=== PATIENT | male | born 1995 | race Caucasian/White ===

== ENCOUNTER 2016-11-08 01:44 | Inpatient (IN) | payer OTHER ==
[~2016-11-08] VITALS: Ht 175.3 cm; Wt 74.8 kg
[2016-11-08] VITALS (15 sets, daily range): BP systolic 103–158; BP diastolic 52–90
[2016-11-08 02:16] LABS: BASOPHILS % (AUTO) 0.6 % (0.0-2.0); EOSINOPHILS % (AUTO) 2.7 % (0.0-3.0); LYMPHOCYTES % (AUTO) 32.6 % (20.0-45.0); MEAN CORPUSCULAR HEMOGLOBIN 30.7 PG (27.0-31.0); MEAN CORPUSCULAR HGB CONC 33.3 G/DL (32.0-36.0); MEAN CORPUSCULAR VOLUME 92 FL (80-99); MEAN PLATELET VOLUME 7.2 FL (6.5-10.1); NEUTROPHILS % (AUTO) 55.1 % (45.0-75.0); PLATELET COUNT 260 K/UL (150-450); RED BLOOD COUNT 4.94 M/UL (4.70-6.10); RED CELL DISTRIBUTION WIDTH 10.9 % (11.6-14.8); WHITE BLOOD COUNT 9.2 K/UL (4.8-10.8)
[2016-11-08 02:19] LABS: APPEARANCE,URINE CLEAR; KETONES,URINE 1+ (NEGATIVE); LEUKOCYTE ESTERASE ,URINE NEGATIVE (NEGATIVE); NITRITE,URINE NEGATIVE (NEGATIVE); PH,URINE 5 (4.5-8.0); PROTEIN,URINE NEGATIVE (NEGATIVE); UROBILINOGEN,URINE NORMAL MG/DL (0.0-1.0)
[2016-11-08 02:31] LABS: ACETAMINOPHEN < 10 ug/mL (10-30); ALANINE AMINOTRANSFERASE 13 U/L (3-41); ALBUMIN/GLOBULIN RATIO 1.6 (1.0-2.7); ALCOHOL < 10 mg/dL; ANION GAP 14 (5-15); ASPARTATE AMINO TRANSFERASE 19 U/L (5-40); CALCIUM 9.8 mg/dL (8.6-10.2); CARBON DIOXIDE 24 mEQ/L (20-30); CHLORIDE 103 mEQ/L (98-107); CREATININE 0.8 mg/dL (0.7-1.2); GLOMERULAR FILTRATION RATE > 60 mL/min (>60); HEMOLYSIS 5; SODIUM 141 mEQ/L (135-145); TOTAL PROTEIN 7.6 g/dL (6.6-8.7)
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
[2016-11-08] MEDS ORDERED: DuoNeb 0.5-3(2.5)mg/3ml neb HHN SCH (03:15)
[2016-11-08] MEDS ORDERED: Zemuron 50mg/5ml Inj IV ONE ×3 (03:45→14:59)
[2016-11-08] MEDS ORDERED: Etomidate 40mg/20ml Inj IV ONE ×3 (03:45→14:59)
[2016-11-08] MEDS ORDERED: UNOBMED (04:58)
[2016-11-08] MEDS ORDERED: cefTRIAXone 1gm/D5W 55ml IVPB SCH ×4 (06:00→09:00)
[2016-11-08] MEDS ORDERED: LORazepam Inj 2mg/ml 1ml ONE (06:37)
[2016-11-08] MEDS ORDERED: LORazepam Inj 2mg/ml 1ml IV PRN (07:00)
[2016-11-08 07:17] LABS: ABG PCO2 34.7 mmHg (35.0-45.0)
[2016-11-08 07:18] LABS: ABG BASE EXCESS -2.6
--- NOTE | 2016-11-08 09:09 | Critical Care Progress Note ---
Assessment/Plan Assessment/Plan respiratory failure PLAN extubate taper oxygen defer primary care to Dr. Patel Critical Care - Subjective Interval Events: care noted and reviewed awake d/w nursing I&O: Intake and Output 11/08/16 11/09/16 19:00 07:00 Output Total 30 ml Balance -30 ml Output Urine Total 30 ml Critical Care - Objective ET-Tube: 7.5 ET Position: 27 Last 24 Hour Vital Signs Date Time Temp Pulse Resp B/P (MAP) Pulse Ox O2 Delivery O2 Flow Rate FiO2 11/08/16 08:58 Room Air 11/08/16 08:14 30 11/08/16 08:06 100 11/08/16 08:00 70 11/08/16 07:00 52 20 130/63 100 Mechanical Ventilator 93 11/08/16 06:48 83 26 100 11/08/16 06:45 89 20 132/52 100 Mechanical Ventilator 100 11/08/16 06:30 72 11/08/16 06:30 84 18 140/69 100 Mechanical Ventilator 99 11/08/16 06:15 80 21 148/90 100 Mechanical Ventilator 100 11/08/16 06:15 98.1 80 21 144/86 100 Mechanical Ventilator 10.0 100 11/08/16 06:00 97.3 72 25 158/90 100 Mechanical Ventilator 100 11/08/16 05:47 98.1 80 21 144/86 100 Mechanical Ventilator 100 11/08/16 04:42 78 20 100 11/08/16 03:55 100 11/08/16 03:50 74 17 132/87 98 Mechanical Ventilator 100 11/08/16 01:50 57 19 Non-Rebreather 10.0 100 11/08/16 01:45 97.8 57 19 115/63 100 Non-Rebreather 10.0 11/08/16 01:33 97.9 55 24 115/63 100 Non-Rebreather 15.0 Labs: Labs Test 11/08/16 02:05 11/08/16 05:36 White Blood Count 9.2 K/UL (4.8-10.8) Red Blood Count 4.94 M/UL (4.70-6.10) Hemoglobin 15.2 G/DL (14.2-18.0) Hematocrit 45.6 % (42.0-52.0) Mean Corpuscular Volume 92 FL (80-99) Mean Corpuscular Hemoglobin 30.7 PG (27.0-31.0) Mean Corpuscular Hemoglobin Concent 33.3 G/DL (32.0-36.0) Red Cell Distribution Width 10.9 % (11.6-14.8) Platelet Count 260 K/UL (150-450) Mean Platelet Volume 7.2 FL (6.5-10.1) Neutrophils (%) (Auto) 55.1 % (45.0-75.0) Lymphocytes (%) (Auto) 32.6 % (20.0-45.0) Monocytes (%) (Auto) 9.0 % (1.0-10.0) Eosinophils (%) (Auto) 2.7 % (0.0-3.0) Basophils (%) (Auto) 0.6 % (0.0-2.0) Urine Color Yellow Urine Appearance Clear Urine pH 5 (4.5-8.0) Urine Specific [place] 1.025 (1.005-1.035) Urine Protein Negative (NEGATIVE) Urine Glucose (UA) Negative (NEGATIVE) Urine Ketones 1+ (NEGATIVE) Urine Occult Blood Negative (NEGATIVE) Urine Nitrite Negative (NEGATIVE) Urine Bilirubin Negative (NEGATIVE) Urine Urobilinogen Normal MG/DL (0.0-1.0) Urine Leukocyte Esterase Negative (NEGATIVE) Sodium Level 141 mEQ/L (135-145) Potassium Level 4.0 mEQ/L (3.4-4.9) Chloride Level 103 mEQ/L (98-107) Carbon Dioxide Level 24 mEQ/L (20-30) Anion Gap 14 (5-15) Blood Urea Nitrogen 14 mg/dL (7-23) Creatinine 0.8 mg/dL (0.7-1.2) Estimat Glomerular Filtration Rate > 60 mL/min (>60) Glucose Level 120 mg/dL (74-106) Calcium Level 9.8 mg/dL (8.6-10.2) Total Bilirubin 0.5 mg/dL (0.0-1.2) Aspartate Amino Transf (AST/SGOT) 19 U/L (5-40) Alanine Aminotransferase (ALT/SGPT) 13 U/L (3-41) Alkaline Phosphatase 42 U/L (40-129) Total Protein 7.6 g/dL (6.6-8.7) Albumin 4.7 g/dL (3.5-5.2) Globulin 2.9 g/dL Albumin/Globulin Ratio 1.6 (1.0-2.7) Salicylates Level < 1 mg/dL (10-30) Urine Opiates Screen Negative (NEGATIVE) Acetaminophen Level < 10 ug/mL (10-30) Urine Barbiturates Screen Negative (NEGATIVE) Phencyclidine (PCP) Screen Negative (NEGATIVE) Urine Amphetamines Screen Positive (NEGATIVE) Urine Benzodiazepines Screen Positive (NEGATIVE) Urine Cocaine Screen Positive (NEGATIVE) Urine Marijuana (THC) Screen Positive (NEGATIVE) Serum Alcohol < 10 mg/dL Arterial Blood pH 7.407 (7.350-7.450) Arterial Blood Partial Pressure CO2 34.7 mmHg (35.0-45.0) Arterial Blood Partial Pressure O2 603.3 mmHg (75.0-100.0) Arterial Blood HCO3 21.4 mmol/L (22.0-26.0) Arterial Blood Oxygen Saturation 99.2 % (92.0-98.0) Arterial Blood Base Excess -2.6 Smo Test N/a Objective: WDWN NAD clear breath sounds bilaterally without rhonchi or wheeze [id number] without MRG NABS nontender no HSM no CCE nonfocal orally intubated Accucheck: 99 SHARAD TALBERT Nov 08, 2016 09:09
--- NOTE | 2016-11-08 11:23 | Diagnostic Imaging Report ---
Indication: Dyspnea Comparison: One hour earlier A single view chest radiograph was obtained. Findings: Current study performed 05:42 Endotracheal tube is suggestive of the troy. The lungs are symmetric and hypoinflated. Heart size is normal. Impression: Endotracheal tube just above the troy. The tube should be pulled up slightly better positioning. This was done as reflected on the subsequent film done at 7:55
--- NOTE | 2016-11-08 11:24 | Diagnostic Imaging Report ---
Indication: Dyspnea Comparison: None A single view chest radiograph was obtained. Findings: Endotracheal tube tip is about 1 cm above the troy. Lung volumes are low. Perihilar infiltrates may be present. Impression: Endotracheal tube in good position
--- NOTE | 2016-11-08 11:25 | Diagnostic Imaging Report ---
Indication: Dyspnea Comparison: None A single view chest radiograph was obtained. Findings: Lungs are better inflated. No obvious infiltrate seen. Endotracheal tube was repositioned and is just above the troy in good position. Nasogastric tube is also in good position. The stomach is distended. Impression: Tubes satisfactory. No obvious infiltrate
--- NOTE | 2016-11-09 07:00 | History and Physical Report ---
DATE OF ADMISSION: 11/08/2016 Reason For Admission: Respiratory failure with polysubstance intoxication. History Of Present Illness: This is a 20-year-old male, who was brought into the emergency room by paramedics for suspected overdose at a alliance party. He did "G" but does not know what that meant. He subsequently passed out during intercourse and brought to the emergency room. His toxicology screen was positive for cocaine, marijuana, and benzodiazepines. The patient has no known prior medical history. In the emergency room, he aspirated with vomitus and required intubation and mechanical ventilation. PHYSICAL EXAMINATION: GENERAL: He is orally intubated, awake, and agitated. Vital Signs: Afebrile, blood pressure 115/63, pulse 55, and respiratory rate 24. HEENT: Pupils are reactive. Orally intubated. LUNGS: Bilateral breath sounds with rhonchi. HEART: Regular rhythm and rate. Normal S1 and S2. ABDOMEN: Soft. EXTREMITIES: No edema. SKIN: Intact. Diagnostic Data: EKG with sinus bradycardia and no acute abnormalities. Chest x-ray reveals right-sided infiltrate. IMPRESSION: 1. Polysubstance abuse. 2. Aspiration. 3. Respiratory failure. 4. Pneumonia. 5. Sinus bradycardia. PLAN: 1. Hydration. 2. Ventilator support. 3. Empiric antibiotics. 4. Pulmonary consult for ventilator management and extubation. 5. Withdrawal precautions. Irwin Patel M.D. DR: RONALD JOB#: [id number] CC:
--- NOTE | 2016-11-09 15:54 | Cardiology Report ---
APPROVED REPORT EKG Measurement Heart [id number] CA 208P27 [id number] Sinus bradycardia Rightward axis Early repolarization Borderline ECG
--- NOTE | 2016-11-10 14:34 | Discharge Summary ---
Discharge Summary Hospital Course Date of Admission Nov 08, 2016 at 02:38 Date of Discharge Nov 08, 2016 at 15:00 Admitting Diagnosis altered mental status HPI Kane Coronado is a 20 year old male who was admitted on Nov 08, 2016 at 02:38 for Altered Mental Status Hospital Course dc summary #[id number] Discharge Condition Upon Discharge: stable Discharge Disposition Patient was transferee to [facility] Diagnoses: Discharge Instructions Discharge Instructions Special Instructions I have been assigned to complete a D/C Summary on this account. I was not involved in the patient management Rakesh Keller)Terri NP Nov 10, 2016 14:34
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
== END 2016-11-08 15:00 | disposition short-term general hospital (02) | DRG 917 ==
LOC: EDBD 01:44 → EMR 02:30 → ICU 02:38 → EDBEDREQ 04:45 → ICU 06:25
PROC: 0BH17EZ Insertion of Endotracheal Airway into Trachea, Via Natural or Artificial Opening (ICD-10-PCS; principal; 2016-11-08)
PROC: 5A1935Z Respiratory Ventilation, Less than 24 Consecutive Hours (ICD-10-PCS; principal; 2016-11-08)
DX: T50.901A Poisoning by unspecified drugs, medicaments and biological substances, accidental (unintentional), initial encounter (principal); J96.00 Acute respiratory failure, unspecified whether with hypoxia or hypercapnia; J18.9 Pneumonia, unspecified organism; F19.10 Other psychoactive substance abuse, uncomplicated; R00.1 Bradycardia, unspecified; Y92.89 Other specified places as the place of occurrence of the external cause
CPT/HCPCS: 36600; 71010; 80053; 80300; 80329; 81003; 82803; 82962; 85025; 87081; 93005; 94002; 94003; 99291; J2405

== ENCOUNTER 2017-06-10 14:52 | Emergency (ER) | payer OTHER ==
[~2017-06-10] VITALS: Ht 172.7 cm; Wt 79.4 kg
[~2017-06-10 14:52] MED LIST: ADDERAL20 MG ORAL; UNOBMED; XANAX0.25 MG ORAL
--- NOTE | 2017-06-10 16:26 | Diagnostic Imaging Report ---
Indication: Seizure Technique: Continuous helical CT scanning of the head was performed without intravenous contrast material. Axial and coronal 5 mm sections were generated. Radiation dose was minimized using automated exposure control Dose: Total Dose Length Product - DLP 1453.[address] Dose Index - CTDIvol(s) 70.38 mGy. Comparison: none Findings: The ventricular system is normal in size and configuration. There is no shift of midline structures. No abnormal extra-axial fluid collections are noted. There is no evidence of intracerebral bleeding. No other abnormal high or low density areas are noted within the brain. Normal slater-white differentiation. Visualized orbits are unremarkable. There is minimal ethmoid sinus disease The calvarium is intact. The mastoids are clear Impression: Normal CT scan of the head without contrast material. Incidental finding minimal ethmoid sinus disease The CT scanner at [facility] is accredited by the [employer] and the scans are performed using protocols designed to limit radiation exposure to as low as reasonably achievable to attain images of sufficient resolution adequate for diagnostic evaluation.
[2017-06-10 16:34] LABS: HEMOGLOBIN 15.9 G/DL (14.2-18.0); MEAN CORPUSCULAR VOLUME 88 FL (80-99); PLATELET COUNT 266 K/UL (150-450); RED BLOOD COUNT 5.23 M/UL (4.70-6.10); RED CELL DISTRIBUTION WIDTH 11.9 % (11.6-14.8); WHITE BLOOD COUNT 19.1 K/UL (4.8-10.8)
[2017-06-10 16:43] LABS: ANION GAP 9 mmol/L (5-15); BLOOD UREA NITROGEN 12 mg/dL (7-18); CALCIUM 9.1 MG/DL (8.5-10.1); CARBON DIOXIDE 25 MMOL/L (21-32); CHLORIDE 103 MMOL/L (98-107); CREATININE 0.9 MG/DL (0.55-1.30); POTASSIUM 3.9 MMOL/L (3.5-5.1); SODIUM 137 MMOL/L (136-145)
[2017-06-10 16:46] LABS: ALANINE AMINOTRANSFERASE 42 U/L (12-78); ALBUMIN 4.4 G/DL (3.4-5.0); ALBUMIN/GLOBULIN RATIO 1.1 (1.0-2.7); ALKALINE PHOSPHATASE 49 U/L (46-116); ASPARTATE AMINO TRANSFERASE 28 U/L (15-37); BILIRUBIN,TOTAL 1.1 MG/DL (0.2-1.0); CREATINE KINASE 260 U/L (26-308)
[2017-06-10 16:53] LABS: BILIRUBIN,DIRECT 0.2 MG/DL (0.0-0.3)
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
[2017-06-10 17:36] LABS: APPEARANCE,URINE CLEAR; BILIRUBIN, URINE NEGATIVE (NEGATIVE); GLUCOSE, URINE (UA) NEGATIVE (NEGATIVE); KETONES,URINE 1+ (NEGATIVE); LEUKOCYTE ESTERASE ,URINE 1+ (NEGATIVE); NITRITE,URINE NEGATIVE (NEGATIVE); PH,URINE 5 (4.5-8.0); PROTEIN,URINE 2+ (NEGATIVE); UROBILINOGEN,URINE NORMAL MG/DL (0.0-1.0)
[2017-06-10 17:39] LABS: COLOR,URINE YELLOW
[2017-06-10 19:00] VITALS: BP 131/64
--- NOTE | 2017-06-11 21:21 | Cardiology Report ---
APPROVED REPORT EKG Measurement Heart [id number] [place] 190P33 [id number] Normal sinus rhythm Normal ECG
== END 2017-06-10 19:02 | disposition home or self-care (01) ==
LOC: EDBD 14:52 → EMR 18:37
DX: G40.909 Epilepsy, unspecified, not intractable, without status epilepticus (principal); R41.82 Altered mental status, unspecified; V49.40XA Driver injured in collision with unspecified motor vehicles in traffic accident, initial encounter; Y92.410 Unspecified street and highway as the place of occurrence of the external cause; F41.9 Anxiety disorder, unspecified; F90.9 Attention-deficit hyperactivity disorder, unspecified type; Z79.899 Other long term (current) drug therapy
CPT/HCPCS: 36415; 70450; 80053; 80307; 81003; 82248; 82550; 82962; 84484; 85007; 85025; 93005; 96361; 96374; 99284; G0480; 80329